=== PATIENT | male | born 1955 | race Caucasian/White ===

== ENCOUNTER 2016-03-26 08:56 | Emergency (ER) | payer OTHER ==
[2016-03-26 09:09] VITALS: O2SAT 96
--- NOTE | 2016-03-26 11:02 | CPEKG ---
Heart Rate: 46 RR Interval: 1304 P-R Interval: 140 QRSD Interval: 98 QT Interval: 460 QTC Interval: 403 P Alva: -11 QRS Alva: 129 T Wave Alva: 18 EKG Severity - BORDERLINE ECG - EKG Impression: SINUS BRADYCARDIA EKG Impression: CONSIDER RIGHT VENTRICULAR HYPERTROPHY Electronically Signed By: Isiah Ayoub 26-Mar-2016 11:35:11
--- NOTE | 2016-03-26 11:14 | DX ---
Chest, Two Views March 26, 2016, at 0920 Hours History: Fall. Ski injury/chest Tuesday, R/O rib fracture/pneumothorax. Comparison: None. Findings: Cardiac silhouette is within normal range. Right midlung field 7 mm calcified granuloma unc hanged since 2011. No pulmonary contusion, pleural effusion, or pneumothorax. Suggestion of old bilat eral rib fractures. However, no evidence of definite acute rib fracture on the PA view. No pneumonia, congestive heart failure, pleural effusion, or pneumothorax. Impression: 1. Stable right 7 mm pulmonary granuloma. 2. No pulmonary contusion, pleural effusion, or pneumothorax. 3. No definite acute rib fracture. 4. Consider dedicated rib series if there is continued clinical concern.
[2016-03-26 11:37] VITALS: BP 160/98; PULSE 48; RESP 16; TEMP 98.1
--- NOTE | 2016-03-26 11:58 | EDPHY ---
H & P Stated Complaint: ski inj tuesday/fell onto chest/now with cough/sob Time Seen by Provider: 03/26/16 11:07 HPI/ROS: CHIEF COMPLAINT: fall skiing, chest pain HISTORY OF PRESENT ILLNESS: 61-year-old male presents emergency department complaining left-sided chest wall pain after a fall skiing 4 days ago. Patient reports he fell forward onto his forearms than his chest at this no going approximately 15 miles an hour. He states it knocked the wind out of him. Patient has had pain with deep breaths, coughing and movement. He reports a productive cough over the last 2 days. Patient denies abdominal pain, nausea, vomiting, dizziness, lightheadedness. No fevers or chills, no neck pain. REVIEW OF SYSTEMS: A comprehensive 10 point review of systems is otherwise negative aside from elements mentioned in the history of present illness. Source: Patient Exam Limitations: No limitations - Personal History Current Tetanus/Diphtheria Vaccine: Yes - Medical/Surgical History Hx Asthma: No Hx Chronic Respiratory Disease: No Hx Diabetes: No Hx Cardiac Disease: No Hx Renal Disease: No Hx Cirrhosis: No Hx Alcoholism: No Hx HIV/AIDS: No Hx Splenectomy or Spleen Trauma: No Other PMH: Migraines, complex migraines, right-sided carotid artery dissection and stroke (08), seizures, frontal love scar - Social History Smoking Status: Former smoker - Physical Exam Exam: Physical Exam Gen: Alert and Oriented, NAD HEENT: PERRL, moist mucous membranes NECK: No C-spine tenderness to palpation CV: regular rate and regular rhythm Chest wall: Left-sided anterior chest wall tenderness to palpation PULM: CTAB, no wheezes ABDOMEN: soft, non tender to palpation, BS present NEURO: Neurologically grossly intact EXTREMITIES: normal appearing SKIN: no rash or break in skin on exposed skin PSYCH: answers questions appropriately. Constitutional: Initial Vital Signs Temperature (C) 36.6 C 03/26/16 09:06 Heart Rate 54 L 03/26/16 09:06 Respiratory Rate 22 H 03/26/16 09:06 Blood Pressure 155/88 H 03/26/16 09:06 O2 Sat (%) 96 03/26/16 09:06 O2 Delivery Mode Room Air Allergies/Adverse Reactions: No Known Allergies Allergy (Verified 03/26/16 09:05) Home Medications: Medication Instructions Recorded Keppra 500 mg (RX) 04/06/15 Hydrocodone/APAP 5/325 [[place] 1 tab PO Q4H PRN #14 tab 03/26/16 5/325] Medical Decision Making - Diagnostics EKG Interpretation: Sinus bradycardia Imaging: Chest x-ray independently reviewed by me- Impression: 1. Stable right 7 mm pulmonary granuloma. 2. No pulmonary contusion, pleural effusion, or pneumothorax. 3. No definite acute rib fracture. 4. Consider dedicated rib series if there is continued clinical concern. Dictated By: Aleksandr Pal ED Course/Re-evaluation: Patient is refusing incentive spirometer, he has been instructed how to cough and deep breathe and the importance of this as do not get pneumonia. Patient's room air oxygen saturations are 95%, lungs are clear, chest x-ray shows no evidence of pneumonia, pneumothorax, pleural effusion. He will be discharged home instructed to take ibuprofen. He is given a prescription for [place]. He is given strict return precautions for increased pain, fevers, worsening cough, any other questions or concerns. Differential Diagnosis: The differential diagnosis for the patient's trauma included but was not limited to intracranial injury, long bone and pelvic bone fractures, spinal injury, intra-abdominal injury, and intra-thoracic injury. Departure - Departure Disposition: Home, Routine, Self-Care Clinical Impression: Chest wall pain, Costochondritis, acute Condition: Good Instructions: Costochondritis (ED) Additional Instructions: Cough and deep breathe 10 times an hour while awake, take 600 mg of ibuprofen every 8 hours with food for 3-5 days, take 1 [place] every 4-6 hours as needed to be able to cough and deep breathe. Return to the emergency department for fevers, increased pain, increased coughing, other questions or concerns. Referrals: YADI HATCH [Primary Care Provider] - As per Instructions Prescriptions: Hydrocodone/APAP 5/325 [[place] 5/325] 1 tab PO Q4H PRN #14 tab PRN Reason: Pain, Moderate
== END 2016-03-26 12:15 | disposition home or self-care (01) ==
DX: S29.9XXA Unspecified injury of thorax, initial encounter (principal); M94.0 Chondrocostal junction syndrome [Tietze]; Z87.891 Personal history of nicotine dependence; V00.321A Fall from snow-skis, initial encounter; Y99.8 Other external cause status; Y93.23 Activity, snow (alpine) (downhill) skiing, snowboarding, sledding, tobogganing and snow tubing

== ENCOUNTER → 2016-04-09 | Outpatient (CLI) | payer OTHER | LOC: FIMAGING 14:12 | PROVIDERS: ATTEND Psychiatry & Neurology Neurology | DX: G40.909 Epilepsy, unspecified, not intractable, without status epilepticus (principal); G43.109 Migraine with aura, not intractable, without status migrainosus ==

== ENCOUNTER → 2016-08-11 | Outpatient (CLI) | payer OTHER | LOC: CIMAGING 07:53 | PROVIDERS: ATTEND Internal Medicine | DX: K82.4 Cholesterolosis of gallbladder (principal); B18.2 Chronic viral hepatitis C | CPT/HCPCS: 76705-PO ==